=== PATIENT | female | born 1990 | race Caucasian/White ===

== ENCOUNTER → 2017-06-06 | Outpatient (CLI) | payer MEDICAID ==
[~2017-06-06] MED LIST: DICL250C70 PO; SUBO8MIS SL
== END ==
LOC: M OUTALCOH 07:51
PROVIDERS: ATTEND Psychiatry & Neurology Psychiatry
DX: Z13.9 Encounter for screening, unspecified (principal); F11.20 Opioid dependence, uncomplicated; F12.20 Cannabis dependence, uncomplicated; F15.20 Other stimulant dependence, uncomplicated

== ENCOUNTER 2017-06-15 09:00 | Outpatient (RCR) | payer MEDICAID | END 2017-07-13 | LOC: M OUTALCOH 09:00 | PROVIDERS: ATTEND Psychiatry & Neurology Psychiatry | DX: Z13.9 Encounter for screening, unspecified (principal); F11.20 Opioid dependence, uncomplicated; F12.20 Cannabis dependence, uncomplicated; F15.20 Other stimulant dependence, uncomplicated ==

== ENCOUNTER 2017-07-07 22:07 | Emergency (ER) | payer MEDICAID, OTHER ==
[~2017-07-07] VITALS: Ht 152.4 cm; Wt 45.5 kg
[2017-07-07 22:08] VITALS: BP 119/77
== END 2017-07-07 23:05 | disposition home or self-care (01) ==
LOC: M ED 22:07
DX: S80.12XA Contusion of left lower leg, initial encounter (principal); Z72.0 Tobacco use; W54.0XXA Bitten by dog, initial encounter; Y92.89 Other specified places as the place of occurrence of the external cause; Y93.89 Activity, other specified; Y99.9 Unspecified external cause status

== ENCOUNTER 2017-07-31 16:18 | Emergency (ER) | payer OTHER ==
[~2017-07-31] VITALS: Ht 152.4 cm; Wt 48.0 kg
[2017-07-31 16:19] VITALS: BP 107/60
[2017-07-31] MEDS ORDERED: DICL250C70 PO (16:27)
[2017-07-31] MEDS ORDERED: SUBO8MIS SL (16:27)
== END 2017-07-31 20:21 | disposition left against medical advice (07) ==
LOC: M ED 16:18
DX: J02.9 Acute pharyngitis, unspecified (principal); Z53.29 Procedure and treatment not carried out because of patient's decision for other reasons

== ENCOUNTER → 2017-09-04 | Outpatient (REF) | payer MEDICAID | LOC: M LAB REF 17:06 | PROVIDERS: ATTEND Advanced Practice Midwife | DX: Z12.4 Encounter for screening for malignant neoplasm of cervix (principal); Z11.3 Encounter for screening for infections with a predominantly sexual mode of transmission; R30.0 Dysuria | CPT/HCPCS: 87086; 87491; 87591; G0123 ==

== ENCOUNTER 2019-10-19 12:42 | Emergency (ER) | payer MEDICAID, OTHER ==
[~2019-10-19] VITALS: Ht 149.9 cm; Wt 53.2 kg
[2019-10-19] MEDS ORDERED: IBUP80TA PO (13:02)
[2019-10-19] MEDS ORDERED: PENI500T PO (14:17)
[2019-10-19] MEDS ORDERED: DIFL150T PO (14:17)
[2019-10-19 14:31] VITALS: BP 121/74
== END 2019-10-19 14:30 | disposition home or self-care (01) ==
LOC: M ED 12:42
DX: K06.020 Generalized gingival recession, unspecified (principal); K04.7 Periapical abscess without sinus; F17.200 Nicotine dependence, unspecified, uncomplicated; Z97.2 Presence of dental prosthetic device (complete) (partial)

== ENCOUNTER → 2020-06-11 | Emergency (ER) | payer OTHER ==
[~2020-06-11] MED LIST changes: +DIFL150T PO; +IBUP80TA PO; +PENI500T PO
== END | disposition left against medical advice (07) ==
LOC: M ED 22:57
DX: Z53.21 Procedure and treatment not carried out due to patient leaving prior to being seen by health care provider (principal)

== ENCOUNTER 2020-12-30 17:48 | Inpatient (IN) | payer OTHER ==
[~2020-12-30] VITALS: Ht 157.5 cm; Wt 61.1 kg
[2020-12-30] VITALS (20 sets, daily range): BP systolic 134–187; BP diastolic 68–97
[~2020-12-30 17:48] MED LIST changes: +OXYTOCIN DRIP 30 UNITS in IV 1 EA IV SCH
[2020-12-30] MEDS ORDERED: MAPA500T2 PO (18:20)
[2020-12-30] MEDS ORDERED: PRENTAB9 PO (18:20)
[2020-12-30] MEDS ORDERED: OMEP40CA97 PO (18:20)
[2020-12-30] MEDS ORDERED: ACETAMINOPHEN 500 MG TAB PO PRN (19:00)
[2020-12-30 19:39] LABS: BARBITURATES URINE REFLEX NEGATIVE (NEGATIVE); BENZODIAZEPINES URINE REFLEX NEGATIVE (NEGATIVE); CANNABINOIDS URINE REFLEX NEGATIVE (NEGATIVE); COCAINE METABOLITE URINE REFLE NEGATIVE (NEGATIVE); METHADONE URINE REFLEX NEGATIVE (NEGATIVE); OPIATES URINE REFLEX NEGATIVE (NEGATIVE); PHENCYCLIDINE URINE REFLEX NEGATIVE (NEGATIVE)
[2020-12-30 19:41] LABS: AMPHETAMINES URINE REFLEX PENDING CONFIRMATION (NEGATIVE); CREATININE,RANDOM URINE 66.5 MG/DL; TOTAL PROTEIN,RANDOM URINE 434.6 MG/DL (0.0-12.0)
[2020-12-30 19:53] LABS: BASO # 0.1 10^3/uL (0.0-0.2); BASO % 0.5 % (0.0-1.0); EOS # 0.1 10^3/uL (0.0-0.5); EOS % 0.3 % (0.0-3.0); HEMATOCRIT 29.7 % (36.0-47.0); HEMOGLOBIN 9.2 g/dl (12.0-15.5); LYMPH # 2.3 10^3/uL (1.5-5.0); LYMPH % 15.3 % (24.0-44.0); MEAN CORPUSCULAR HEMOGLOBIN 25.6 pg (27.0-33.0); MEAN CORPUSCULAR VOLUME 82.7 fl (80.0-96.0); MONO % 6.7 % (2.0-8.0); NEUTROPHILS # 11.1 10^3/uL (1.5-8.5); NEUTROPHILS % 75.1 % (36.0-66.0); PLATELET COUNT, AUTOMATED 226 10^3/uL (150-450); RED BLOOD COUNT 3.59 10^6/uL (4.00-5.40); WHITE BLOOD COUNT 14.8 10^3/uL (4.0-10.0)
[2020-12-30 20:05] LABS: ALT/SGPT 21 U/L (12-78); CREATININE FOR GFR 0.48 MG/DL (0.55-1.30); GLOMERULAR FILTRATION RATE > 60.0 (>60); LDH LACTATE DEHYDROGENASE 233 U/L (84-246); URIC ACID 4.1 MG/DL (2.6-6.0)
[2020-12-30] MEDS ORDERED: PENICILLIN G POTASSIUM IV 5 MU in D5W MINI-BAG PLUS 100 ML IV STA (20:20)
[2020-12-30] MEDS ORDERED: miSOPROStol 50MCG 1/2 TABLET PO ONE (20:30)
[2020-12-30] MEDS ORDERED: LR 1,000 ML IV SCH (20:36)
[2020-12-30 20:40] LABS: BILIRUBIN,TOTAL < 0.1 MG/DL (0.2-1.0)
--- NOTE | 2020-12-30 20:44 | HPE ---
HISTORY AND PHYSICAL DATE OF ADMISSION: 12/30/2020 HISTORY OF PRESENT ILLNESS: Joana is a 30-year-old 2, para 0-0-1-0. She is 38 2/7 weeks gestation with an EDC of 01/11/2021, based on 14 week ultrasound. She presents to labor and delivery today with report of elevated blood pressure at home and a headache x3 days that was unresolved with Tylenol 48 hours ago. Her most recent meal was at approximately 6 p.m. when she stopped to [employer] on the way in. She denies vaginal bleeding, leakage of fluid, and regular painful contractions. She does report positive movement. She does report headache. Denies visual disturbances, epigastric pain, and right upper quadrant discomfort. care inadequate, she had one visit and was discharged for noncompliance with care. She has not been seen since August of 2020. Of note, her headache has resolved following one dose of Tylenol at 1900 and she feels better now. OBSTETRIC HISTORY: One first trimester missed . OBSTETRIC LABS: None available. They have been ordered. GBS unknown. PAST MEDICAL HISTORY: 1. Abnormal Pap. 2. Positive chlamydia. 3. Positive gonorrhea. PAST SURGICAL HISTORY: Left femur reconstruction 1996. FAMILY HISTORY: Throat cancer. SOCIAL HISTORY: The patient is single; however, there is a partner at bedside. She is a tobacco abuse smoker approximately half-pack per day. She denies alcohol use. 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 She does have a history of chlamydia in the past and she tested positive for gonorrhea. She did have a repeat [id number] that was negative on September 10. She denies history of abuse. ALLERGIES: No known drug allergies. CURRENT MEDICATIONS: None. PHYSICAL EXAMINATION: VITAL SIGNS: Temperature 99.3, pulse 96, respirations 18, blood pressure is elevated at 143/92, 145/91, 154/97. heart rate is 150 with moderate variability. There is no accelerations and there is no decelerations. Contractions appear to be every 6-7 minutes. ABDOMEN: Gravid, cephalic presentation by Jaime, as well as confirmed by bedside ultrasound. Estimated weight 6.5 pounds. PELVIC: Sterile vaginal exam 1.5 cm dilated, 80% effaced, -2 station posterior, soft, and no show. LABORATORY DATA: Returned with hemoglobin of 9.2, hematocrit 29.7, platelets 226,000. AST 18, ALT 21, LDH 233, uric acid 4.1. Her spot urine is elevated at 6.53. ASSESSMENT: Intrauterine at 38 2/7 weeks. heart rate category 1. Preeclampsia. PLAN: Per consult with Dr. Gorge Garcia, admit the patient to labor and delivery. Plan for induction of labor. Additional routine laboratories and panel have all been ordered. Will plan GBS prophylaxis for unknown GBS. Risks, benefits, and alternatives have been reviewed with the patient. She and her partner's questions have been answered. She has been verbally consented for emergency surgery and blood products if they are necessary. Plan to give her one dose of misoprostol and then start IV Pitocin. Following that, the patient is likely planning an epidural to cope with her labor. I do anticipate cervical ripening. MTDD
[2020-12-30 20:54] LABS: HEPATITIS C VIRUS ABY INDEX 0.1 INDEX (<0.8)
[2020-12-30 20:55] LABS: HIV 1&2 SCREEN CENTAUR NEGATIVE (NEGATIVE)
[2020-12-30] MEDS: ONDANSETRON 4MG/2ML VIAL IV PRN (23:18)
[2020-12-31] VITALS (61 sets, daily range): BP systolic 122–175; BP diastolic 65–103
[2020-12-31 00:57] LABS: HEMATOCRIT 28.9 % (36.0-47.0); HEMOGLOBIN 8.9 g/dl (12.0-15.5); MEAN CORPUSCULAR HEMOGLOBIN 25.5 pg (27.0-33.0); MEAN CORPUSCULAR HGB CONC 30.8 g/dl (32.0-36.5); MEAN CORPUSCULAR VOLUME 82.8 fl (80.0-96.0); PLATELET COUNT, AUTOMATED 209 10^3/uL (150-450); RED BLOOD COUNT 3.49 10^6/uL (4.00-5.40)
[2020-12-31 01:27] LABS: ALT/SGPT 16 U/L (12-78); BILIRUBIN,TOTAL < 0.1 MG/DL (0.2-1.0); CREATININE FOR GFR 0.51 MG/DL (0.55-1.30); GLOMERULAR FILTRATION RATE > 60.0 (>60); LDH LACTATE DEHYDROGENASE 265 U/L (84-246); URIC ACID 3.8 MG/DL (2.6-6.0)
[2020-12-31] MEDS: PENICILLIN G POTASSIUM IV 2.5 MU in IV 1 EA IV SCH ×3 (02:14→10:36)
[2020-12-31] MEDS ORDERED: FENTANYL 2MCG/ML ROPIVACAINE 0.2% IN 0.9% NACL 100ML IVBAG As Ordered ONE (04:14)
[2020-12-31] MEDS: ONDANSETRON 4MG/2ML VIAL IV PRN (04:43)
[2020-12-31] MEDS ORDERED: ePHEDrine SULFATE 25 MG/5 ML(5MG/ML) SYRINGE IV PRN (05:30)
[2020-12-31] MEDS ORDERED: NALOXONE INJ 0.4MG/1ML VIAL (J2310 PER 1MG) IV PRN (05:30)
[2020-12-31] MEDS ORDERED: diphenhydrAMINE 50MG/ML VIAL (J1200) IV PRN (05:30)
[2020-12-31] MEDS ORDERED: EPIDURAL COMMENT XX SCH (05:30)
[2020-12-31] MEDS ORDERED: EPIDURAL/PCA KEYS XX PRN (05:30)
[2020-12-31] MEDS ORDERED: FENTANYL/ROPIVACAINE/NACL BAG 100 ML EPIDURAL SCH (05:30)
[2020-12-31] MEDS ORDERED: LACTATED RINGER'S 1000 ML IV PRN (05:30)
[2020-12-31] MEDS ORDERED: ONDANSETRON 4MG/2ML VIAL IV PRN ×2 (05:30→15:00)
[2020-12-31] MEDS ORDERED: REFRIGERATOR IV KEYS XX PRN (05:30)
--- NOTE | 2020-12-31 10:05 | IPNPDOC ---
Obstetrical Progress Note Date of Service Dec 31, 2020 Subjective 30 yo at 38+ weeks, induction for preeclampsia. Comfortable with epidural. Headache improved. Objective Vital Signs Date Time Temp Pulse Resp B/P (MAP) Pulse Ox O2 Delivery O2 Flow Rate FiO2 12/31/20 08:06 98.9 68 145/89 (107) 12/31/20 07:23 18 Assessment Variability: Moderate Accelerations: Positive Decelerations: None Heart Rate Tracing: Category I Tocometer Contractions: Yes Frequency: regular, every 1-3 min. Sterile Vaginal Examination Dilation: 3 cm Effacement (%): 80% Station: -2 Cervical Consistency: Soft Cervical Position: Middle Postion/Presentation: Cephalic presentation Assessment and Plan Status: Reassuring Additional Comments AROM clear at 0955 A/P 30 yo at 38+ weeks, induction for preeclampsia Pitocin turned down to 2 mu/min due to frequent contractions AROM performed as noted above BP has been labile, and position dependent since epidural NATHANIEL OSCAR MD Dec 31, 2020 10:05
[2020-12-31] MEDS ORDERED: NS 1,000 ML IV SCH (10:17)
[2020-12-31] MEDS ORDERED: ACETAMINOPHEN TAB 650MG DOSE (2X325MG) PO PRN (15:00)
[2020-12-31] MEDS ORDERED: IBUPROFEN 600MG TAB PO PRN (15:00)
[2020-12-31] MEDS ORDERED: LIDOCAINE 1% MDV 20ML VIAL INFIL ONE (15:00)
[2020-12-31] MEDS ORDERED: MEASLES,MUMPS,RUBELLA VACCINE INJ (MMR-II) (90707) SC SCH (15:00)
[2020-12-31] MEDS ORDERED: METHYLERGONOVINE MALEATE 0.2 MG TAB PO PRN (15:00)
[2020-12-31] MEDS ORDERED: RHOGAM 300 MCG (1500 IU) INJ (J2790) IM SCH (15:00)
[2020-12-31] MEDS ORDERED: OXYTOCIN DRIP 30 UNITS in IV 1 EA IV ONE (15:00)
[2020-12-31] MEDS ORDERED: BENZOCAINE 20% HEMORRHOIDAL OINTMENT 28GM TUBE TOP PRN (15:00)
[2020-12-31] MEDS ORDERED: DOCUSATE SODIUM 100MG CAPSULE PO PRN (15:00)
--- NOTE | 2020-12-31 15:08 | DNPDOC ---
[facility] Delivery Note Delivery Note DATE OF DELIVERY: December 31, 2020 PREDELIVERY DIAGNOSIS: 38-2/7 weeks' gestation, preeclampsia, induction POST DELIVERY DIAGNOSIS: Delivered. PROCEDURE: Spontaneous vaginal delivery. AREA COORDINATOR: Dr. Nathaniel Oscar MD ANESTHESIA: epidural. ESTIMATED BLOOD LOSS: 300 mL. FINDINGS: 5 pound 7 ounce female , Score 8/9. DELIVERY SUMMARY: Patient is a 30-year-old 1 now para 2 who was admitted to labor and delivery for induction of labor due to preeclampsia. She received one dose of Misoprostol. She had AROM performed. After a 30 minute second stage of labor she had a spontaneous vaginal delivery of a 5# 7 oz. female under epidural anesthesia. No nuchal cord. Shoulders delivered with ease. The infant was handed to the mother and cried quickly. The cord was doubly clamped and cut. The placenta delivered by manual extraction. The patient received IV Pitocin immediately after delivery of the placenta. A first degree right labial laceration was repaired with 3-O Chromic in the usual fashion under local anesthesia. Sponge and needle counts were correct. NATHANIEL OSCAR MD Dec 31, 2020 15:08
[2020-12-31] MEDS: ACETAMINOPHEN 500 MG TAB PO PRN (16:24)
[2020-12-31] MEDS: IBUPROFEN 800 MG TAB PO PRN (19:47)
[2021-01-01] VITALS (17 sets, daily range): BP systolic 122–169; BP diastolic 74–99
[2021-01-01] MEDS: ACETAMINOPHEN 500 MG TAB PO PRN ×2 (00:16→07:51)
[2021-01-01] MEDS: IBUPROFEN 800 MG TAB PO PRN (06:33)
[2021-01-01 07:20] LABS: HEMATOCRIT 22.3 % (36.0-47.0); MEAN CORPUSCULAR HEMOGLOBIN 25.7 pg (27.0-33.0); MEAN CORPUSCULAR HGB CONC 30.5 g/dl (32.0-36.5); MEAN CORPUSCULAR VOLUME 84.2 fl (80.0-96.0); PLATELET COUNT, AUTOMATED 176 10^3/uL (150-450); RED BLOOD COUNT 2.65 10^6/uL (4.00-5.40); WHITE BLOOD COUNT 13.9 10^3/uL (4.0-10.0)
[2021-01-01 07:25] LABS: HEMOGLOBIN 6.8 g/dl (12.0-15.5)
[2021-01-01] MEDS ORDERED: NS 1,000 ML IV SCH (08:24)
--- NOTE | 2021-01-01 08:29 | IPNPDOC ---
Text Note Date of Service The patient was seen on 01/01/21. NOTE Reviewed pt status with Dr Bojorquez Pt reports feeling lightheaded and dizzy when she gets OOB to bathroom Offered either blood transfusion or iron infusion per consult Dr Bojorquez. Risks/benefits of both reviewed "I just want to feel better." Pt agrees to blood transfusion. Informed consent obtained. All questions answered VS,Anettee, I+O VS, Fishbone, I+O Laboratory Tests 01/01/21 06:53 Vital Signs Date Time Temp Pulse Resp B/P (MAP) Pulse Ox O2 Delivery O2 Flow Rate FiO2 01/01/21 05:45 97.9 80 17 133/86 (102) 97 Room Air I&O- Last 24 Hours up to 6 AM 01/01/21 06:00 Intake Total 2775.4 ml Output Total 2100 ml Balance 675.4 ml Yanet Barber CNM Jan 01, 2021 08:29
[2021-01-01] MEDS ORDERED: ACETAMINOPHEN TAB 650MG DOSE (2X325MG) PO ONE (08:45)
[2021-01-01] MEDS ORDERED: diphenhydrAMINE 25MG CAP PO ONE (08:45)
[2021-01-01] MEDS ORDERED: PRENATAL VITAMINS CHEWABLE TABLET PO SCH (09:00)
[2021-01-01] MEDS ORDERED: LABETALOL 100MG TAB PO SCH (09:00)
[2021-01-01] MEDS ORDERED: LABETALOL 100MG/20ML VIAL IV STA (12:18)
[2021-01-01] MEDS ORDERED: DIBUCAINE 1% OINTMENT 30GM TOP PRN (14:15)
--- NOTE | 2021-01-01 14:33 | IPNPDOC ---
Text Note Date of Service The patient was seen on 01/01/21. NOTE PP Pt has received 2 units of blood this am and a rescue dose of IV labetalol in addition to the first oral dose. Per nursing, pt refused to sign AMA papers and left. She was informed she would be unable to be readmitted to if she presented back to the hospital. PFS is involved. VS,Fishbone, I+O VS, Fishbone, I+O Laboratory Tests 01/01/21 06:53 Vital Signs Date Time Temp Pulse Resp B/P (MAP) Pulse Ox O2 Delivery O2 Flow Rate FiO2 01/01/21 13:32 71 18 143/91 (108) Room Air 01/01/21 13:06 98.1 99 I&O- Last 24 Hours up to 6 AM 01/01/21 06:00 Intake Total 2775.4 ml Output Total 2100 ml Balance 675.4 ml Yanet Barber CNM Jan 01, 2021 14:33
[2021-01-02 21:20] LABS: Amphetamine Positive (.); Amphetamines Positive (.); GC Amphetamine 1128 ng/mL (Cutoff=500); GC Methamphetam >5000 ng/mL (Cutoff=500); Methamphetamine Positive (.)
== END 2021-01-01 14:20 | disposition home or self-care (01) | DRG 560 ==
LOC: M LDO 17:48 → M LDI 20:14 → M OBS 12-31 16:37
PROVIDERS: ADMIT Advanced Practice Midwife; ATTEND Advanced Practice Midwife
PROC: 3E033VJ Introduction of Other Hormone into Peripheral Vein, Percutaneous Approach (ICD-10-PCS; 2020-12-30)
PROC: 10E0XZZ Delivery of Products of Conception, External Approach (ICD-10-PCS; principal; 2020-12-31)
PROC: 10907ZC Drainage of Amniotic Fluid, Therapeutic from Products of Conception, Via Natural or Artificial Opening (ICD-10-PCS; 2020-12-31)
PROC: 0HQ9XZZ Repair Perineum Skin, External Approach (ICD-10-PCS; 2020-12-31)
PROC: 30233N1 Transfusion of Nonautologous Red Blood Cells into Peripheral Vein, Percutaneous Approach (ICD-10-PCS; 2021-01-01)
DX: O14.04 Mild to moderate pre-eclampsia, complicating childbirth (principal); Z3A.38 38 weeks gestation of pregnancy; Z37.0 Single live birth; O99.824 Streptococcus B carrier state complicating childbirth; O99.334 Smoking (tobacco) complicating childbirth; F17.210 Nicotine dependence, cigarettes, uncomplicated; O70.0 First degree perineal laceration during delivery

== ENCOUNTER → 2023-03-13 | Outpatient (CLI) | payer OTHER ==
[~2023-03-13] MED LIST changes: +MAPA500T2 PO; +OMEP40CA4 PO; -OXYTOCIN DRIP 30 UNITS in IV 1 EA IV SCH; +PRENTAB9 PO
[2023-03-13 18:03] LABS: HEMATOCRIT 36.2 % (36.0-47.0); MEAN CORPUSCULAR HEMOGLOBIN 30.2 pg (27.0-33.0); MEAN CORPUSCULAR HGB CONC 33.1 g/dl (32.0-36.5); MEAN CORPUSCULAR VOLUME 91.2 fl (80.0-96.0); PLATELET COUNT, AUTOMATED 165 10^3/uL (150-450); RED BLOOD COUNT 3.97 10^6/uL (4.00-5.40); WHITE BLOOD COUNT 8.9 10^3/uL (4.0-10.0)
[2023-03-13 19:01] LABS: HIV 1&2 SCREEN CENTAUR NEGATIVE (NEGATIVE)
[2023-03-13 20:16] LABS: GC DNA AMPLIFICATION NEGATIVE (NEGATIVE)
== END ==
LOC: M PLALAB 15:48
PROVIDERS: ATTEND Obstetrics & Gynecology
DX: Z34.81 Encounter for supervision of other normal pregnancy, first trimester (principal)

== ENCOUNTER → 2023-05-10 | Outpatient (CLI) | payer OTHER | LOC: M WHC 12:10 | PROVIDERS: ATTEND Advanced Practice Midwife | DX: Z34.92 Encounter for supervision of normal pregnancy, unspecified, second trimester (principal); Z3A.19 19 weeks gestation of pregnancy ==

== ENCOUNTER → 2023-05-29 | Outpatient (CLI) | payer OTHER | LOC: M RAD 06:44 | PROVIDERS: ATTEND Obstetrics & Gynecology | DX: O32.1XX0 Maternal care for breech presentation, not applicable or unspecified (principal); Z3A.22 22 weeks gestation of pregnancy ==

== ENCOUNTER → 2023-07-10 | Outpatient (CLI) | payer OTHER ==
[2023-07-10 13:45] LABS: HEMATOCRIT 32.3 % (36.0-47.0); HEMOGLOBIN 10.5 g/dl (12.0-15.5); MEAN CORPUSCULAR HEMOGLOBIN 31.3 pg (27.0-33.0); MEAN CORPUSCULAR HGB CONC 32.5 g/dl (32.0-36.5); MEAN CORPUSCULAR VOLUME 96.1 fl (80.0-96.0); PLATELET COUNT, AUTOMATED 134 10^3/uL (150-450); RED BLOOD COUNT 3.36 10^6/uL (4.00-5.40)
[2023-07-10 14:05] LABS: TOTAL PROTEIN,RANDOM URINE 10.8 MG/DL (0.0-14.0)
[2023-07-10 14:10] LABS: CREATININE,RANDOM URINE 42.2 MG/DL
[2023-07-10 14:17] LABS: ALBUMIN 2.8 G/DL (3.2-5.2); ALKALINE PHOSPHATASE 62 U/L (46-116); ALT/SGPT 13 U/L (7.0-40); AST/SGOT < 8 U/L (<34); BILIRUBIN,TOTAL 0.2 MG/DL (0.3-1.2); BLOOD UREA NITROGEN 8 MG/DL (9-23); CALCIUM LEVEL 8.3 MG/DL (8.5-10.1); CARBON DIOXIDE LEVEL 26 MMOL/L (20-31); CHLORIDE LEVEL 105 MMOL/L (98-107); GLOMERULAR FILTRATION RATE > 60.0 (>60); GLUCOSE CHALLENGE TEST 1 HOUR 77 MG/DL (LESS THAN 140); GLUCOSE, FASTING 77 MG/DL (60-100); POTASSIUM SERUM 4.1 MMOL/L (3.5-5.1); SODIUM LEVEL 139 MMOL/L (136-145); TOTAL PROTEIN 5.8 G/DL (5.7-8.2)
[2023-07-10 15:10] LABS: GC DNA AMPLIFICATION NEGATIVE (NEGATIVE)
== END ==
LOC: M PLALAB 10:55
PROVIDERS: ATTEND Obstetrics & Gynecology
DX: O09.299 Supervision of pregnancy with other poor reproductive or obstetric history, unspecified trimester (principal); Z3A.00 Weeks of gestation of pregnancy not specified

== ENCOUNTER → 2023-08-18 | Outpatient (CLI) | payer OTHER | LOC: M WHC 08:01 | PROVIDERS: ATTEND Obstetrics & Gynecology | DX: O40.3XX0 Polyhydramnios, third trimester, not applicable or unspecified (principal); Z3A.33 33 weeks gestation of pregnancy ==

== ENCOUNTER → 2023-09-04 | Outpatient (REF) | payer OTHER ==
[~2023-09-04] MED LIST changes: +BUPR8SUB SL; +COLA100C5 PO; +OMEP-173 PO; +OMEP10CASR PO; +ONDA8TAB8 PO; +SENN-186 PO; +VALT1TAB PO
== END ==
LOC: M SFHCWAGY 16:56
PROVIDERS: ATTEND Specialist
DX: O99.323 Drug use complicating pregnancy, third trimester (principal); Z36.89 Encounter for other specified antenatal screening; Z3A.00 Weeks of gestation of pregnancy not specified

== ENCOUNTER → 2023-09-11 | Outpatient (CLI) | payer OTHER ==
[~2023-09-11] MED LIST changes: -BUPR8SUB SL; -COLA100C5 PO; -OMEP-173 PO; -OMEP10CASR PO; -ONDA8TAB8 PO; -SENN-186 PO; -VALT1TAB PO
[2023-09-11 13:49] LABS: HEMATOCRIT 31.8 % (36.0-47.0); HEMOGLOBIN 10.6 g/dl (12.0-15.5); MEAN CORPUSCULAR HGB CONC 33.3 g/dl (32.0-36.5); PLATELET COUNT, AUTOMATED 161 10^3/uL (150-450); RED BLOOD COUNT 3.42 10^6/uL (4.00-5.40); WHITE BLOOD COUNT 10.7 10^3/uL (4.0-10.0)
== END ==
LOC: M PLALAB 10:12
PROVIDERS: ATTEND Obstetrics & Gynecology
DX: O99.113 Other diseases of the blood and blood-forming organs and certain disorders involving the immune mechanism complicating pregnancy, third trimester (principal); Z3A.00 Weeks of gestation of pregnancy not specified

== ENCOUNTER → 2024-02-26 | Outpatient (CLI) | payer MEDICAID ==
[~2024-02-26] MED LIST changes: +BUPR8SUB SL; +COLA100C5 PO; +OMEP-173 PO; +OMEP10CASR PO; +ONDA8TAB8 PO; +SENN-186 PO; +VALT1TAB PO
== END ==
LOC: M OUTALCOH 07:17
PROVIDERS: ATTEND Psychiatry & Neurology Psychiatry
DX: F11.20 Opioid dependence, uncomplicated (principal); F12.20 Cannabis dependence, uncomplicated

== ENCOUNTER 2024-03-11 16:00 | Outpatient (RCR) | payer MEDICAID | END 2024-03-12 | LOC: M OUTALCOH 16:00 | PROVIDERS: ATTEND Psychiatry & Neurology Child & Adolescent Psychiatry | DX: F11.20 Opioid dependence, uncomplicated (principal) ==

== ENCOUNTER 2024-04-11 08:00 | Outpatient (RCR) | payer MEDICAID ==
[~2024-04-11 08:00] MED LIST changes: -DICL250C70 PO; +DICL250C72 PO
== END 2024-04-12 ==
LOC: M OUTALCOH 08:00
PROVIDERS: ATTEND Psychiatry & Neurology Psychiatry
DX: F11.20 Opioid dependence, uncomplicated (principal)

== ENCOUNTER 2024-05-09 08:00 | Outpatient (RCR) | payer MEDICAID ==
[~2024-05-09 08:00] MED LIST changes: +ONDA-284 PO; -ONDA8TAB8 PO
== END 2024-05-12 ==
LOC: M OUTALCOH 08:00
PROVIDERS: ATTEND Psychiatry & Neurology Psychiatry
DX: F11.20 Opioid dependence, uncomplicated (principal)

== ENCOUNTER → 2024-05-22 | Outpatient (REF) | payer MEDICAID ==
[2024-05-22 14:19] LABS: Trichomonas vaginalis (AMP) NOT DETECTED (NEGATIVE)
[2024-05-22 14:42] LABS: GC DNA AMPLIFICATION NEGATIVE (NEGATIVE)
[2024-05-22 19:04] LABS: THYROID STIMULATING HORMONE 2.194 uIU/ML (0.55-4.78)
[2024-05-22 19:06] LABS: TOTAL 25(OH) VITAMIN D 23.6 NG/ML (20.0-100.0)
[2024-05-22 19:07] LABS: ALBUMIN 3.7 G/DL (3.2-5.2); ALKALINE PHOSPHATASE 109 U/L (46-116); ALT/SGPT 22 U/L (7.0-40); AST/SGOT 13 U/L (<34); BILIRUBIN,TOTAL 0.2 MG/DL (0.3-1.2); BLOOD UREA NITROGEN 9 MG/DL (9-23); CALCIUM LEVEL 8.9 MG/DL (8.5-10.1); CARBON DIOXIDE LEVEL 28 MMOL/L (20-31); CHLORIDE LEVEL 107 MMOL/L (98-107); CHOLESTEROL LEVEL 142 MG/DL (<200); CREATININE FOR GFR 0.57 MG/DL (0.55-1.30); GLOMERULAR FILTRATION RATE > 60.0 (>60); GLUCOSE, FASTING 87 MG/DL (60-100); LDL CHOLESTEROL 90.4 MG/DL (<100); POTASSIUM SERUM 4.3 MMOL/L (3.5-5.1); SODIUM LEVEL 141 MMOL/L (136-145); TOTAL PROTEIN 6.6 G/DL (5.7-8.2); TRIGLYCERIDES LEVEL 93 MG/DL (<150)
[2024-05-22 20:21] LABS: HEMOGLOBIN A1c 5.1 % (4.0-6.0)
== END ==
LOC: M LAB REF 12:02
PROVIDERS: ATTEND Physician Assistant
DX: Z11.9 Encounter for screening for infectious and parasitic diseases, unspecified (principal); E55.9 Vitamin D deficiency, unspecified; Z13.29 Encounter for screening for other suspected endocrine disorder; Z13.220 Encounter for screening for lipoid disorders; F11.20 Opioid dependence, uncomplicated